=== PATIENT | male | born 1985 | race African-American/Black ===

== ENCOUNTER 2020-07-18 09:39 | Emergency (ER) | payer MEDICAID ==
[~2020-07-18] VITALS: Ht 180.3 cm; Wt 79.4 kg
[2020-07-18 09:41] VITALS: BP 135/79
--- NOTE | 2020-07-18 09:44 | NUR ---
Patient being evaluated by DR CORTEZ at bedside.
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
--- NOTE | 2020-07-18 09:50 | NUR ---
DR. CORTEZ ORDERED XRAY OF RT FEMUR AND KNEE. PAIN MED WILL ALSO BE GIVEN.
[2020-07-18] MEDS ORDERED: HYDROcodone/APAP 5/325 MG 1 TAB TAB PO ONE (09:55)
--- NOTE | 2020-07-18 10:03 | NUR ---
[place] given at this time.
--- NOTE | 2020-07-18 10:12 | NUR ---
Patient taken to Xray.
--- NOTE | 2020-07-18 10:54 | NUR ---
Pt taken to ER bed 11 from XR via perlita.
[2020-07-18 11:58] VITALS: BP 124/70
--- NOTE | 2020-07-18 11:59 | NUR ---
Patient discharged with v/s stable. Written and verbal after care instructions given re: LEG PAIN and explained. Patient verbalized understanding. Ambulatory with steady gait. All questions addressed prior to discharge. Advised to follow up with PMD.
== END 2020-07-18 11:59 | disposition home or self-care (01) ==
LOC: MED 09:39
DX: S80.11XA Contusion of right lower leg, initial encounter (principal); W22.8XXA Striking against or struck by other objects, initial encounter; Y93.89 Activity, other specified; Y92.89 Other specified places as the place of occurrence of the external cause; Y99.8 Other external cause status
CPT/HCPCS: 73502; 73560; 99284

== ENCOUNTER 2020-07-18 15:05 | Emergency (ER) | payer MEDICAID ==
[~2020-07-18] VITALS: Ht 180.3 cm; Wt 79.4 kg
[2020-07-18 15:21] VITALS: BP 125/67
--- NOTE | 2020-07-18 15:49 | NUR ---
PATIENT PRESENTS TO ED WITH PENILE PAIN X 1 YEAR. PT WAS SEEN HERE THIS AM FOR LEG CRAMPS; DENIES N/V/D; SKIN IS PINK/WARM/DRY; AAOX4 WITH EVEN AND STEADY GAIT; LUNGS CLEAR BL; HR EVEN AND REGULAR; PT DENIES ANY FEVER, CP, SOB, OR COUGH AT THIS TIME; VSS; PATIENT POSITIONED FOR COMFORT; HOB ELEVATED; BEDRAILS UP X1; BED DOWN. ER MD MADE AWARE OF PT STATUS. PMH: ASTHMA, HTN, DEPRESSION, DRUG ABUSE NKA
[2020-07-18 15:52] VITALS: BP 125/67
--- NOTE | 2020-07-18 15:53 | NUR ---
Patient discharged with v/s stable. Written and verbal after care instructions given and explained. Patient verbalized understanding. Ambulatory with steady gait. All questions addressed prior to discharge. Advised to follow up with PMD.
== END 2020-07-18 15:53 | disposition home or self-care (01) ==
LOC: MED 15:05
DX: N48.29 Other inflammatory disorders of penis (principal); J45.909 Unspecified asthma, uncomplicated; F17.210 Nicotine dependence, cigarettes, uncomplicated
CPT/HCPCS: 99281

== ENCOUNTER 2020-07-21 22:26 | Emergency (ER) | payer MEDICAID ==
[~2020-07-21] VITALS: Ht 175.3 cm; Wt 85.7 kg
[2020-07-21 22:43] VITALS: BP 134/85
--- NOTE | 2020-07-21 22:47 | NUR ---
PATIENT AMBUALTED TO LOBBY WITH STEADY GAIT.
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
[2020-07-22 01:49] LABS: APPEARANCE,URINE SL CLOUDY (CLEAR); BILIRUBIN,URINE NEGATIVE (NEGATIVE); BLOOD, URINE NEGATIVE (NEGATIVE); COLOR,URINE YELLOW (YELLOW); LEUKOCYTE ESTERASE ,URINE NEGATIVE (NEGATIVE); NITRITE, URINE NEGATIVE (NEGATIVE); UGLUCOSE NEGATIVE (NEGATIVE)
[2020-07-22 02:05] LABS: BARBITURATE, URINE NEGATIVE ng/ml (NEG <=200); BENZODIAZEPINE, URINE NEGATIVE ng/mL (NEG <=200); CANNABINOID, URINE POSITIVE ng/mL (NEG <=50); COCAINE, URINE NEGATIVE ng/mL (NEG <=300); OPIATE, URINE NEGATIVE ng/mL (NEG <=2000); PHENCYCLIDINE SCREEN,URINE NEGATIVE ng/mL (NEG <=25)
[2020-07-22 03:10] VITALS: BP 134/85
== END 2020-07-22 02:55 | disposition home or self-care (01) ==
LOC: MED 22:26
DX: N52.9 Male erectile dysfunction, unspecified (principal); F15.10 Other stimulant abuse, uncomplicated; J45.909 Unspecified asthma, uncomplicated; F17.210 Nicotine dependence, cigarettes, uncomplicated; Z98.890 Other specified postprocedural states
CPT/HCPCS: 36415; 80305; 81003; 87491; 99283